=== PATIENT | male | born 1945 | race Caucasian/White ===

== ENCOUNTER → 2017-11-26 | Outpatient (CLI) | payer MEDICARE, OTHER ==
[~2017-11-26] MED LIST: ASPIRIN81 M2 PO; ATORVASTATIN CA40 MG PO; CELEXA 20 MG TA20 M1 PO; CELEXA 20 MG TA20 MG PO; FISH OIL 1,0001 EAC5 PO; FLOMAX0.4 MG PO; GLUCOPHAGE500 MG PO; GLYBURIDE 2.52.5 MG PO; LEVAQUIN 500 M500 M2 PO; LISINOPRIL5 MG PO; LOPRESSOR25 PO; PLAVIX 75 MG TA75 M1 PO; REMERON15 MG PO
== END ==
LOC: M.WC 11-12 08:00
DX: E11.621 Type 2 diabetes mellitus with foot ulcer (principal); L97.511 Non-pressure chronic ulcer of other part of right foot limited to breakdown of skin; I70.238 Atherosclerosis of native arteries of right leg with ulceration of other part of lower leg; L84 Corns and callosities; E11.42 Type 2 diabetes mellitus with diabetic polyneuropathy; E11.36 Type 2 diabetes mellitus with diabetic cataract; E78.5 Hyperlipidemia, unspecified; E78.2 Mixed hyperlipidemia; I11.0 Hypertensive heart disease with heart failure; I50.9 Heart failure, unspecified; I25.10 Atherosclerotic heart disease of native coronary artery without angina pectoris; I25.2 Old myocardial infarction; F33.1 Major depressive disorder, recurrent, moderate; F41.9 Anxiety disorder, unspecified; Z79.4 Long term (current) use of insulin; Z87.891 Personal history of nicotine dependence; Z85.89 Personal history of malignant neoplasm of other organs and systems; Z86.73 Personal history of transient ischemic attack (TIA), and cerebral infarction without residual deficits; Z95.5 Presence of coronary angioplasty implant and graft; Z79.82 Long term (current) use of aspirin

== ENCOUNTER → 2017-12-03 | Outpatient (CLI) | payer MEDICARE, OTHER | LOC: M.WC 05:27 | DX: E11.621 Type 2 diabetes mellitus with foot ulcer (principal); L97.511 Non-pressure chronic ulcer of other part of right foot limited to breakdown of skin; E11.36 Type 2 diabetes mellitus with diabetic cataract; I25.10 Atherosclerotic heart disease of native coronary artery without angina pectoris; E78.2 Mixed hyperlipidemia; I11.0 Hypertensive heart disease with heart failure; I50.9 Heart failure, unspecified; I25.2 Old myocardial infarction; F33.1 Major depressive disorder, recurrent, moderate; Z85.828 Personal history of other malignant neoplasm of skin; Z87.891 Personal history of nicotine dependence ==

== ENCOUNTER → 2017-12-10 | Outpatient (CLI) | payer MEDICARE, OTHER | LOC: M.WC 03:44 | DX: E11.621 Type 2 diabetes mellitus with foot ulcer (principal); I70.235 Atherosclerosis of native arteries of right leg with ulceration of other part of foot; L97.512 Non-pressure chronic ulcer of other part of right foot with fat layer exposed; L84 Corns and callosities; E11.36 Type 2 diabetes mellitus with diabetic cataract; E78.2 Mixed hyperlipidemia; I25.10 Atherosclerotic heart disease of native coronary artery without angina pectoris; I25.2 Old myocardial infarction; I11.0 Hypertensive heart disease with heart failure; I50.9 Heart failure, unspecified; F41.9 Anxiety disorder, unspecified; F33.1 Major depressive disorder, recurrent, moderate; Z86.73 Personal history of transient ischemic attack (TIA), and cerebral infarction without residual deficits; Z95.5 Presence of coronary angioplasty implant and graft; Z95.828 Presence of other vascular implants and grafts; Z87.891 Personal history of nicotine dependence ==

== ENCOUNTER → 2017-12-17 | Outpatient (CLI) | payer MEDICARE, OTHER | LOC: M.WC 00:42 | DX: E11.621 Type 2 diabetes mellitus with foot ulcer (principal); I70.238 Atherosclerosis of native arteries of right leg with ulceration of other part of lower leg; L97.512 Non-pressure chronic ulcer of other part of right foot with fat layer exposed; L84 Corns and callosities; E11.36 Type 2 diabetes mellitus with diabetic cataract; E78.2 Mixed hyperlipidemia; I11.0 Hypertensive heart disease with heart failure; I50.9 Heart failure, unspecified; I25.2 Old myocardial infarction; I25.10 Atherosclerotic heart disease of native coronary artery without angina pectoris; F33.1 Major depressive disorder, recurrent, moderate; Z86.73 Personal history of transient ischemic attack (TIA), and cerebral infarction without residual deficits; Z95.5 Presence of coronary angioplasty implant and graft; Z95.828 Presence of other vascular implants and grafts; Z87.891 Personal history of nicotine dependence ==

== ENCOUNTER → 2017-12-24 | Outpatient (CLI) | payer MEDICARE, OTHER | LOC: M.WC 04:49 | DX: E11.621 Type 2 diabetes mellitus with foot ulcer (principal); I70.235 Atherosclerosis of native arteries of right leg with ulceration of other part of foot; L97.512 Non-pressure chronic ulcer of other part of right foot with fat layer exposed; L84 Corns and callosities; E11.42 Type 2 diabetes mellitus with diabetic polyneuropathy; E11.36 Type 2 diabetes mellitus with diabetic cataract; E78.2 Mixed hyperlipidemia; I11.0 Hypertensive heart disease with heart failure; I50.9 Heart failure, unspecified; I25.2 Old myocardial infarction; I25.10 Atherosclerotic heart disease of native coronary artery without angina pectoris; F32.9 Major depressive disorder, single episode, unspecified; Z95.5 Presence of coronary angioplasty implant and graft; Z86.73 Personal history of transient ischemic attack (TIA), and cerebral infarction without residual deficits; Z85.89 Personal history of malignant neoplasm of other organs and systems; Z95.828 Presence of other vascular implants and grafts; Z87.891 Personal history of nicotine dependence ==

== ENCOUNTER → 2018-01-07 | Outpatient (CLI) | payer MEDICARE, OTHER | LOC: M.WC 04:34 | DX: E11.621 Type 2 diabetes mellitus with foot ulcer (principal); I70.235 Atherosclerosis of native arteries of right leg with ulceration of other part of foot; L97.511 Non-pressure chronic ulcer of other part of right foot limited to breakdown of skin; L84 Corns and callosities; E11.42 Type 2 diabetes mellitus with diabetic polyneuropathy; E11.36 Type 2 diabetes mellitus with diabetic cataract; E78.2 Mixed hyperlipidemia; I11.0 Hypertensive heart disease with heart failure; I50.9 Heart failure, unspecified; I25.2 Old myocardial infarction; I25.10 Atherosclerotic heart disease of native coronary artery without angina pectoris; F32.9 Major depressive disorder, single episode, unspecified; F41.9 Anxiety disorder, unspecified; Z86.73 Personal history of transient ischemic attack (TIA), and cerebral infarction without residual deficits; Z95.5 Presence of coronary angioplasty implant and graft; Z87.891 Personal history of nicotine dependence ==

== ENCOUNTER → 2020-07-09 | Outpatient (CLI) | payer MEDICARE, OTHER ==
[~2020-07-09] MED LIST changes: -ATORVASTATIN CA40 MG PO; +DIGOX250 MCG PO; +FISH OIL 1,001000 M3 PO; +FREESTYLE FREE1 EAC1 MISCELL; +GLIPIZIDE 10 MG10 MG PO; +LIPITOR40 MG PO; -LOPRESSOR25 PO; +MELATONIN3 M1 PO; +MIRTAZAPINE7.5 MG PO; +NITROSTAT0.4 M1 SUBLING; +PROSCAR 5MG TABL5 M1 PO; +TOPROL XL25 MG PO
--- NOTE | 2020-07-09 15:46 | 2DMMODE ---
[place] [address] 2 D/M-MODE ECHOCARDIOGRAM Name: ROBER FISHER Marjan Room: [facility]#: [id number] Admission: 07/09/20 Attend Phys: Kayla Vasquez, Discharge: Date of : 45 Date of Service: 07/09/20 1545 Report #: [id number] THIS REPORT FOR: cc: Isaías So MD, Meng MD Liston, Michael J. MD [facility] ~ APPROVED REPORT Study performed: 07/09/2020 12:41:41 EXAM: Comprehensive 2D, Doppler, and color-flow Echocardiogram Patient Location: Out-Patient BSA: 2.02 HR: 65 bpm Other Information Study Quality: Fair Indications Congestive Heart Failure Cardiomyopathy 2D Dimensions IVSd: 11.03 (7-11mm) LVOT Diam: 20.82 (18-24mm) LVDd: 62.71 mm PWd: 11.42 (7-11mm) Ascending Ao: 31.11 (22-36mm) LVDs: 48.62 (25-40mm) Aortic Root: 34.22 mm Volumes Left Atrial Volume (Systole) LA ESV Index: 16.80 mL/m2 Aortic Valve AoV Peak Rubens.: 1.69 m/s AO Peak Gr.: 11.46 mmHg LVOT Max P.49 mmHg AO Mean Gr.: 6.34 mmHg LVOT Mean P.72 mmHg LVOT Max V: 0.61 m/s AO V2 VTI: 36.37 cm LVOT Mean V: 0.39 m/s VICKI (VTI): 1.33 cm2 LVOT V1 VTI: 14.17 cm AI Stutsman: 3.23 m/s2 AI PHT: 377.03 [place] [address] 2 D/M-MODE ECHOCARDIOGRAM Name: ROBER FISHER Room: [facility]#: [id number] Admission: 07/09/20 Attend Phys: Kayla Vasquez, Discharge: Date of : 45 Date of Service: 07/09/20 1545 Report #: [id number] Mitral Valve E/A Ratio: 0.64 MV Decel. Time: 298.36 ms MV E Max Rubens.: 0.46 m/s MV PHT: 86.52 ms MVA (PHT): 2.54 cm2 TDI E/Lateral E': 7.67 E/Medial E': 6.57 Medial E' Rubens.: 0.07 m/s Lateral E' Rubens.: 0.06 m/s Pulmonary Valve PV Peak Rubens.: 0.70 m/s PV Peak Gr.: 1.94 mmHg Left Ventricle The left ventricle is normal size. There is akinesis of the inferior wall extending from the basal to mid inferior wall and basal inferolateral wall. There is normal left ventricular wall thickness. Left ventricular systolic function is moderately decreased. LVEF is 30-35%. Grade I - abnormal relaxation pattern. Right Ventricle The right ventricle is normal size. The right ventricular systolic function is normal. Atria The left atrium size is normal. The right atrium size is normal. Aortic Valve Mild aortic valve sclerosis. Moderate aortic regurgitation. There is no aortic valvular stenosis. Mitral Valve The mitral valve is normal in structure. Mild mitral regurgitation. No evidence of mitral valve stenosis. Tricuspid Valve The tricuspid valve is normal in structure. There is no tricuspid valve regurgitation noted. Pulmonic Valve The pulmonary valve is normal in structure. There is no pulmonic [place] [address] 2 D/M-MODE ECHOCARDIOGRAM Name: ROBER FISHER Marjan Room: [facility]#: [id number] Admission: 07/09/20 Attend Phys: Kayla Vasquez, Discharge: Date of : 45 Date of Service: 07/09/20 1545 Report #: [id number] Great Vessels The aortic root is normal in size. IVC is normal in size and collapses >50% with inspiration. Pericardium There is no pericardial effusion. <Conclusion> The left ventricle is normal size. There is normal left ventricular wall thickness. Left ventricular systolic function is moderately decreased. LVEF is 30-35%. Grade I - abnormal relaxation pattern. Mild aortic valve sclerosis. Moderate aortic regurgitation. Mild mitral regurgitation. IVC is normal in size and collapses >50% with inspiration. Wall motion abnormalities as outlined above. Findings consistent with an ischemic cardiomyopathy. <ELECTRONICALLY SIGNED> By: Angel Jauregui MD, [facility] 07/09/20 1545 1545 1545 Angel Jauregui MD, FACC /INF
--- NOTE | 2020-07-09 16:47 | CARDNUC ---
[place] [address] CARDIAC NUCLEAR IMAGING REPORT Name: ROBER FISHER Room: [facility]#: [id number] Admission: 07/09/20 Attend Phys: Kayla Vasquez, Discharge: Date of : 45 Date of Service: 07/09/20 1647 Report #: [id number] THIS REPORT FOR: cc: Isaías So MD, Meng MD Liston, Michael J. MD [facility] ~ APPROVED REPORT Imaging Protocol: Stress Tc-99m/Rest Tc-99m 1 day Study performed: 07/09/2020 13:30:00 Indication: CAD , Congestive Heart Failure. Patient Location: Out-Patient Stress Tech: Shreya Barlow Stress Nurse: Jeni Richardson RN Ht: 6 ft 0 in Wt: 170 lbs BSA: 1.99 m2 BMI: 23.05 Medical History Medical History: Chest pain, dyspnea, ischemic cardiomyopathy, CHF, HX bladder cancer, bradycardia, possible [place] per patient, CAD s/p stent, left arm numbness, HX claudication, past smoker, FHX CAD, HTN, HLD, PVD, DM II. Medications: ASA 81 mg, Atorvastatin, Clopidogrel, digoxin, metoprolol, Abie 3 Fish Oils, Metformin, NTG. Allergies: No known drug allergies Cardiac Risk Factors: Age, DM, FHX of CAD, HTN, Hyperlipidemia, SOB, Past Smoker, PVD, CHF, Bradycardia. Previous Cardiac Procedures: PCI Pretest Chest Pain Characteristics: No chest pain Exercise History: Indeterminate Physical Disabilities: Irregular Heart rate, ABN EKG, generalizedd weak/unstable gait. Meds Held (24 hrs): Metoprolol, NTG. Resting Data Rest SPECT myocardial perfusion imaging was performed in supine position 30 minutes following the intravenous injection of 10.2 mCi of Tc-99m Sestamibi. Time of rest injection: 13:50 The images were gated to evaluate regional wall motion and calculate left ventricular ejection fraction. Administration Route: [place] [address] CARDIAC NUCLEAR IMAGING REPORT Name: ROBER FISHER Room: [facility]#: [id number] Admission: 07/09/20 Attend Phys: Kayla Vasquez, Discharge: Date of : 45 Date of Service: 07/09/20 1647 Report #: [id number] Administration Site: Right Hand Pharmacologic Stress Pharmacologic stress test was performed by injecting Regadenoson 0.4 mg IV push over 10-15 seconds immediately followed by the intravenous injection of 31.6 mCi of Tc-99m Sestamibi. Time of stress injection: 15:20 Administration Route: IV Administration Site: Right Hand Heart Rate at time of stress injection: 110 bpm. Gated Stress SPECT was performed 40 minutes after stress injection. The images were gated to evaluate regional wall motion and calculate left ventricular ejection fraction. Prone imaging was performed. Stress Test Details Stress Test: Pharmacologic stress testing performed using 0.4 mg of regadenoson per 5 mL given IV over 10 seconds. Reason for pharmacologic stress test: Irregular Heart rate, ABN EKG, generalizedd weak/unstable gait.. HR Max Heart Rate (APMHR): 146 bpm Resting HR: 72 bpm Target HR (85% APMHR): 124 bpm Max HR Achieved: 110 bpm % of APMHR: 75 Recovery HR: 94 bpm BP Resting BP: 156/95 mmHg Max BP: 142/66 mmHg Recovery BP: 137/73 mmHg ECG Resting ECG: Sinus Rhythm Stress ECG: Sinus Tachycardia ST Change: None Arrhythmia: VPC's Recovery ECG: Sinus Rhythm Recovery ST Change: None Recovery Arrhythmia: None Clinical Reason for Termination: Completed protocol Stress Symptoms: None voiced by patient. Exercise duration: 00 min 00 sec Exercise capacity: 1.[address] [place] [address] CARDIAC NUCLEAR IMAGING REPORT Name: ROBER FISHER Room: [facility]#: [id number] Admission: 07/09/20 Attend Phys: Kayla Vasquez, Discharge: Date of : 45 Date of Service: 07/09/20 1647 Report #: [id number] The patient tolerated Lexiscan infusion without significant cardiac symptoms. Nurse Comments A 74 year old male presented for a sitting Lexiscan. Test well tolerated. Recovery unremarkable. Patient was stable and stated he felt good when escorted to Nuclear Medicine for imaging. Stress ECG Conclusion The baseline twelve-lead EKG shows sinus rhythm without significant ST segment abnormality. EKGs obtained during and post Lexiscan infusion show sinus rhythm and sinus tachycardia with occasional unifocal premature ventricular contractions. There were no other stress-induced arrhythmias. Study Quality Study: Good Artifact: No artifact Study Data At rest, the left ventricular ejection fraction was 34%.. Post stress, the left ventricular ejection was 27%.. TID = 0.94. Perfusion Perfusion images obtained at rest and post Lexiscan stress show a large in size severe in intensity fixed defect of the basal to mid inferior and inferolateral wall consistent with prior infarct. No reversible defects were identified. Wall Motion There is akinesis of the basal to mid inferior and inferolateral wall. Nuclear Conclusion ECG Findings: negative for ischemia Clinical Findings: negative for ischemia Nuclear Findings: negative for ischemia Exercise Capacity: not assessed Left Ventricular Function: abnormal Risk Study: high Perfusion images are consistent with prior large inferolateral infarct without ongoing ischemia. Left ventricular systolic function is severely decreased with wall motion abnormalities outlined above. This is a high risk study based on [place] [address] CARDIAC NUCLEAR IMAGING REPORT Name: ROBER FISHER Room: [facility]#: [id number] Admission: 07/09/20 Attend Phys: Kayla Vasquez, Discharge: Date of : 45 Date of Service: 07/09/20 1647 Report #: [id number] <Conclusion> The baseline twelve-lead EKG shows sinus rhythm without significant ST segment abnormality. EKGs obtained during and post Lexiscan infusion show sinus rhythm and sinus tachycardia with occasional unifocal premature ventricular contractions. There were no other stress-induced arrhythmias. <ELECTRONICALLY SIGNED> By: Angel Jauregui MD, FACC 07/09/201646 46 46 Angel Jauregui MD, FACC /INF
== END ==
LOC: M.CRD 06-28 10:56
PROVIDERS: ATTEND Nurse Practitioner
DX: I08.0 Rheumatic disorders of both mitral and aortic valves (principal); R00.0 Tachycardia, unspecified; I25.10 Atherosclerotic heart disease of native coronary artery without angina pectoris; I50.22 Chronic systolic (congestive) heart failure

== ENCOUNTER → 2020-09-11 | Outpatient (CLI) | payer MEDICARE, OTHER | LOC: M.LAB 09:46 | PROVIDERS: ATTEND Internal Medicine Gastroenterology | DX: Z01.818 Encounter for other preprocedural examination (principal); Z20.822 Contact with and (suspected) exposure to COVID-19 ==

== ENCOUNTER → 2020-11-18 | Outpatient (CLI) | payer MEDICARE, OTHER ==
[2020-11-18 15:10] LABS: CALCIUM 8.4 mg/dL (8.5-10.1); CREATININE 1.4 mg/dL (0.6-1.3); POTASSIUM 4.9 mmol/L (3.5-5.1)
== END ==
LOC: M.LAB 14:20
PROVIDERS: ATTEND Nurse Practitioner
DX: I25.5 Ischemic cardiomyopathy (principal)